=== PATIENT | male | born 1945 | race Caucasian/White ===

== ENCOUNTER → 2021-04-22 15:01 | Outpatient (BNVA) | payer SELFPAY | PROVIDERS: Visit Provider Internal Medicine | DX: Z02.79 Encounter for issue of other medical certificate (principal) ==

== ENCOUNTER → 2021-10-23 10:05 | Outpatient (BNVA) | payer SELFPAY | PROVIDERS: Visit Provider Internal Medicine | DX: Z02.79 Encounter for issue of other medical certificate (principal) ==

== ENCOUNTER → 2022-05-08 11:02 | Outpatient (BNVA) | payer SELFPAY | PROVIDERS: Visit Provider Internal Medicine | DX: Z02.79 Encounter for issue of other medical certificate (principal) ==

== ENCOUNTER → 2022-10-07 14:17 | Outpatient (BNVA) | payer MEDICARE, SELFPAY | PROVIDERS: PCP Internal Medicine; Visit Provider Psychiatry & Neurology Neurology | DX: R20.0 Anesthesia of skin (principal); R20.2 Paresthesia of skin; M54.2 Cervicalgia; R26.9 Unspecified abnormalities of gait and mobility; R29.6 Repeated falls; Z85.118 Personal history of other malignant neoplasm of bronchus and lung; Z92.21 Personal history of antineoplastic chemotherapy; Z92.3 Personal history of irradiation | CPT/HCPCS: 99202 ==

== ENCOUNTER 2022-10-19 10:21 | Outpatient (REF) | payer MEDICARE, SELFPAY ==
--- NOTE | ~2022-10-19 | MR_ITS ---
EXAMINATION: MR CERVICAL SPINE WITHOUT AND WITH CONTRAST CLINICAL INFORMATION: 77-year-old with repeated falls. Bilateral shoulder pain. History of bone and lung CA. COMPARISON: None TECHNIQUE: MRI of the cervical spine was obtained using routine sequences with and without contrast. Intravenous contrast: Gadavist 7.5 mL. FINDINGS: ALIGNMENT: There is trace anterolisthesis at C4-C5 and mild anterolisthesis at C7-T1. Lordotic curvature is maintained. CRANIOCERVICAL JUNCTION/C1-C2 ARTICULATIONS: Intact and aligned, with minor effusions noted bilaterally. VISUALIZED INTRACRANIAL STRUCTURES: Moderate generalized diffuse brain parenchymal volume loss noted supratentorially. VERTEBRAL BODIES: Vertebral body heights are well maintained. DISC SPACES AND ENDPLATES: Severe disc space height loss at C5-C6 and C6-C7 with disc desiccation, Schmorl's nodes and spondylosis at these levels. Uitkgswv-rj-uxxblh disc space height loss at C3-C4 with disc desiccation and minor spondylosis with hyup-rl-tuhouyac intervertebral disc space height loss at C4-C5 with disc desiccation and minor spondylosis. BONE MARROW: Type I degenerative marrow signal changes seen along the endplates at C6-C7 with associated endplate marrow enhancement consistent with this. Type II degenerative marrow signal changes seen along the endplates at C5-C6. No suspicious marrow-replacing process or other bone marrow edema. C2-C3: Small central disc protrusion with slight indentation of the ventral thecal sac noted with mild ligamentum flavum thickening without cord impingement or significant canal stenosis. Severe left and moderate right-sided facet arthrosis noted with mild foraminal narrowing on the left. There is fluid signal between the posterior arch of C1 and the C2 spinous process of uncertain significance. C3-C4: Posterior disc osteophyte complex noted, with mild flattening of the ventral dural sac without cord impingement or canal stenosis. Ligamentum flavum thickening noted with severe left-sided and njqxsmru-vh-qfnijj right-sided facet arthropathy with bilateral uncinate process spurring. There is moderate bilateral neural foraminal stenosis. C4-C5: Posterior disc osteophyte complex noted, with slight flattening of the ventral dural sac without cord impingement or canal stenosis. Ligamentum flavum thickening noted with severe bilateral facet arthrosis, with mild left and moderate right-sided neural foraminal stenosis. C5-C6: Broad-based disc osteophyte complex noted, with flattening of the ventral dural sac without cord impingement. Ligamentum flavum thickening is noted with moderate central spinal canal stenosis. Bilateral uncovertebral spurring is noted with marked bilateral facet arthrosis with severe right-sided and vdjuujiw-py-uytrej left-sided neural foraminal stenosis. C6-C7: Broad-based disc osteophyte complex noted, with flattening of the ventral dural sac without cord impingement. Knxs-ty-hnbptkyw spinal canal stenosis is noted. There is bilateral uncovertebral spurring and gkzk-km-nqjydozb facet arthropathy with mild bilateral neural foraminal stenosis. C7-T1: Unroofing of the posterior disc margin noted without disc herniation, cord impingement or canal stenosis. Moderate facet arthropathy noted bilaterally with mild bilateral neural foraminal narrowing. T1-T2: No disc herniation or canal stenosis. Easy-cw-ujscnwmd bilateral facet arthrosis without significant neural foraminal stenosis. SPINAL CORD: The cervical and visualized upper thoracic spinal cord is normal in signal intensity throughout, without focal lesion, edema or syrinx and there is no abnormal spinal cord enhancement. There is no definite abnormal leptomeningeal enhancement. EXTRACRANIAL SOFT TISSUES: Note is made of some edema and associated enhancement within the soft tissues adjacent to the C6 spinous process and within the interspinous ligament of C6-C7. These findings suggest localized inflammation but could also be related to an injury to the interspinous ligament. Findings are nonspecific. Otherwise the visualized extracranial and extraspinal soft tissues appear grossly unremarkable. MR/MR cervical spine wo/w con IMPRESSION: 1. Multilevel DDD and spondylosis, with multilevel disc osteophyte complexes, ligamentum flavum thickening and facet arthropathy with olxb-pv-zbnsslph spinal canal stenosis at C6-C7 and moderate spinal canal stenosis at C5-C6 without cord impingement. 2. 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 3. No evidence for spinal cord lesion or abnormal spinal cord enhancement. No focally aggressive osseous lesions are suspected. 4. Soft tissue edema and enhancement adjacent to the C6 spinous process and within the interspinous ligament of C6-C7 which is nonspecific and could be secondary to an injury to the interspinous ligament or could be inflammatory of uncertain etiology. Correlate with physical examination and follow-up as per clinical indications.
== END 2022-10-19 10:22 | disposition home or self-care (01) ==
LOC: HO.MRI 10:21
PROVIDERS: Visit Provider Psychiatry & Neurology Neurology
DX: M54.2 Cervicalgia (principal); R20.0 Anesthesia of skin; R20.2 Paresthesia of skin; C34.90 Malignant neoplasm of unspecified part of unspecified bronchus or lung; R26.9 Unspecified abnormalities of gait and mobility; R29.6 Repeated falls
CPT/HCPCS: 72156; A9585